=== PATIENT | female | born 1985 | race Asian ===

== ENCOUNTER 2017-06-29 14:55 | Inpatient (IN) | payer SELFPAY ==
[~2017-06-29] VITALS: Ht 157.5 cm; Wt 68.0 kg
[2017-06-29] MEDS ORDERED: OXYTOCIN 20 UNITS in LACTATED RINGERS 1,000 ML IV SCH (15:24)
[2017-06-29] MEDS ORDERED: NALBUPHINE 10 MG/ML AMP IVP PRN (15:25)
[2017-06-29] MEDS ORDERED: OXYTOCIN 10 UNITS/ML VIAL IM ONE (15:25)
[2017-06-29 15:52] VITALS: BP 108/67
[2017-06-29] MEDS ORDERED: INFLUENZA VIRUS VACCINE QUAD 0.5 ML SYR IMVAC SCH (15:55)
[2017-06-29] MEDS ORDERED: AMPICILLIN 2,000 MG VIAL ONE (16:00)
[2017-06-29] MEDS ORDERED: AMPICILLIN 2,000 MG in NACL 0.9% 100 ML IV ONE (16:00)
[2017-06-29] MEDS ORDERED: MISOPROSTOL 25 MCG TAB VG SCH (16:00)
[2017-06-29 16:36] LABS: BASOPHILS # (AUTO) 0.1 K/uL (0.00-0.22); BASOPHILS % (AUTO) 1.4 % (0.0-2.0); EOSINOPHILS # (AUTO) 0.1 K/uL (0-0.4); EOSINOPHILS % (AUTO) 0.8 % (0.0-4.0); HEMATOCRIT 35.9 % (36-48); HEMOGLOBIN 12.1 g/dL (12.0-16.0); LYMPHOCYTES # (AUTO) 0.9 K/uL (2.5-16.5); LYMPHOCYTES % (AUTO) 13.1 % (20.5-51.1); MEAN CORPUSCULAR HEMOGLOBIN 31 pg (27-31); MEAN CORPUSCULAR HGB CONC 34 g/dL (33-37); MEAN CORPUSCULAR VOLUME 92 fL (80-94); MONOCYTES # (AUTO) 0.3 K/uL (0.8-1.0); MONOCYTES % (AUTO) 4.1 % (1.7-9.3); NEUTROPHILS # (AUTO) 5.6 K/uL (1.8-7.7); NEUTROPHILS % (AUTO) 80.6 % (42.2-75.2); PLATELET COUNT (AUTO) 185 K/uL (140-450); RED BLOOD CELL COUNT(AUTO) 3.91 MIL/uL (4.20-5.40); RED CELL DISTRIBUTION WIDTH 16.3 % (11.6-13.7)
[2017-06-29 16:44] LABS: APPEARANCE,URINE CLEAR (CLEAR); BILIRUBIN,URINE 1+ (NEGATIVE); BLOOD, URINE NEGATIVE (NEGATIVE); LEUKOCYTE ESTERASE ,URINE NEGATIVE (NEGATIVE); NITRITE, URINE NEGATIVE (NEGATIVE); PH,URINE 5.5 (5.0-9.0); UGLUCOSE NEGATIVE (NEGATIVE)
[2017-06-29 16:48] LABS: COLOR,URINE AMBER (YELLOW)
[2017-06-29] MEDS ORDERED: PREN-380 PO (17:27)
[2017-06-29] MEDS ORDERED: LEVO0.083 PO (17:27)
[2017-06-29] MEDS: AMPICILLIN 1,000 MG in NACL 0.9% 50 ML IV SCH (20:45)
[2017-06-29] MEDS ORDERED: AMPICILLIN 1,000 MG VIAL ONE (20:53)
[2017-06-30] MEDS: LACTATED RINGERS 1,000 ML IV SCH ×3 (01:05→15:02)
[2017-06-30] MEDS: AMPICILLIN 1,000 MG in NACL 0.9% 50 ML IV SCH ×4 (01:08→12:57)
[2017-06-30] MEDS ORDERED: AMPICILLIN 1,000 MG VIAL ONE ×4 (01:14→13:00)
[2017-06-30] MEDS ORDERED: ROPIVACAINE 0.2%/NS PREMIX 250 ML EPI ONE ×2 (03:57→13:06)
[2017-06-30] MEDS ORDERED: ROPIVACAINE 0.2%/NS PREMIX 250 ML EPI SCH (04:10)
[2017-06-30] MEDS ORDERED: LEVOTHYROXINE 0.088 MG TAB PO SCH (06:30)
--- NOTE | 2017-06-30 09:05 | NUR ---
PATIENT HAS BEEN SCREENED AND CATEGORIZED LOW NUTRITION RISK. PATIENT WILL BE SEEN WITHIN 7 DAYS OF ADMISSION. 07/06/[address]
[2017-06-30] MEDS ORDERED: OXYTOCIN 10 UNITS/ML VIAL ONE (16:14)
[2017-06-30] MEDS ORDERED: METHYLERGONOVINE 0.2 MG/ML AMP IM PRN (16:35)
[2017-06-30] MEDS ORDERED: MEASLES, MUMPS, AND RUBELLA 1 VIAL SQVAC PRN (16:35)
[2017-06-30] MEDS ORDERED: OXYTOCIN 10 UNITS/ML VIAL IM PRN (16:35)
[2017-06-30] MEDS ORDERED: IBUPROFEN 800 MG TAB PO PRN (16:35)
[2017-06-30] MEDS ORDERED: HYDROcodone/APAP 5/325 MG 1 TAB TAB PO PRN (16:35)
[2017-06-30] MEDS ORDERED: TEMAZEPAM 15 MG CAP PO PRN (16:35)
[2017-06-30] MEDS ORDERED: oxyCODONE/APAP 5/325 MG 1 TAB TAB PO PRN (16:35)
[2017-06-30] MEDS ORDERED: BENZOCAINE/MENTHOL 20%-0.5% 60 GM CAN TP PRN (16:35)
[2017-06-30] MEDS ORDERED: DOCUSATE SOD/SENNA 50/8.6 MG 1 TAB PO SCH (21:00)
[2017-07-01 06:47] LABS: HEMATOCRIT 32.3 % (36-48); HEMOGLOBIN 10.8 g/dL (12.0-16.0)
== END 2017-07-01 20:50 | disposition home or self-care (01) | DRG 775 ==
LOC: MLD 14:55 → OBSVTOIN 14:55 → MFCC 06-30 20:12
PROVIDERS: ADMIT Obstetrics & Gynecology; ATTEND Obstetrics & Gynecology
PROC: 10E0XZZ Delivery of Products of Conception, External Approach (ICD-10-PCS; principal; 2017-06-30)
PROC: 0W8NXZZ Division of Female Perineum, External Approach (ICD-10-PCS; 2017-06-30)
PROC: 00HU33Z Insertion of Infusion Device into Spinal Canal, Percutaneous Approach (ICD-10-PCS; 2017-06-30)
PROC: 3E0R3BZ Introduction of Anesthetic Agent into Spinal Canal, Percutaneous Approach (ICD-10-PCS; 2017-06-30)
PROC: 3E0234Z Introduction of Serum, Toxoid and Vaccine into Muscle, Percutaneous Approach (ICD-10-PCS; 2017-07-01)
PROC: 3E0234Z Introduction of Serum, Toxoid and Vaccine into Muscle, Percutaneous Approach (ICD-10-PCS; 2017-07-01)
DX: O77.0 Labor and delivery complicated by meconium in amniotic fluid (principal); E89.0 Postprocedural hypothyroidism; O99.284 Endocrine, nutritional and metabolic diseases complicating childbirth; O89.4 Spinal and epidural anesthesia-induced headache during the puerperium; Z37.0 Single live birth; Z82.49 Family history of ischemic heart disease and other diseases of the circulatory system; Z85.850 Personal history of malignant neoplasm of thyroid; Z3A.00 Weeks of gestation of pregnancy not specified; Z23 Encounter for immunization
CPT/HCPCS: 36415; 51702; 59409; 81003; 85018; 85025; 86592; 86886; 86900; 86901; 90658; 90707; 90715; J0290; J2590; J2795; J7120